=== PATIENT | male | born 1990 | race Caucasian/White ===

== ENCOUNTER → 2019-02-06 | Outpatient (CLI) | payer OTHER ==
--- NOTE | 2019-02-06 11:26 | XR ---
EXAMINATION TYPE: XR knee complete RT DATE OF EXAM: 02/06/2019 CLINICAL HISTORY: Anterior pain after falling injury one week ago. TECHNIQUE: Three views of the right knee are obtained. COMPARISON: None. FINDINGS: The tri-compartment joint spaces appear within normal limits. Fabella is present. Subtle lucency superior aspect of patella appears to correspond to a spur along the anterior superior aspect . Subtle avulsion injury felt less likely but not excluded, correlate clinically for point tenderness at this level. No adjacent soft tissue swelling is noted. IMPRESSION: As above.
== END | disposition home or self-care (01) ==
LOC: RADXRMAIN 10:34
PROVIDERS: ATTEND Emergency Medicine
DX: M25.561 Pain in right knee (principal)

== ENCOUNTER → 2019-03-01 | Outpatient (CLI) | payer OTHER ==
--- NOTE | 2019-03-01 08:50 | MR ---
EXAMINATION TYPE: MR knee RT wo con DATE OF EXAM: 03/01/2019 COMPARISON: Outside right knee x-ray February 16, 2019 HISTORY: Pain in right knee per order. In her pain after stepping injury per patient. TECHNIQUE: Multiplanar, multisequence images of the knee is performed without IV contrast. FINDINGS: MEDIAL MENISCUS: Anterior and posterior horns are intact without tear. LATERAL MENISCUS: Anterior and posterior horns are intact without tear. CRUCIATE LIGAMENTS: The anterior and posterior cruciate ligaments are intact and unremarkable. COLLATERAL LIGAMENTS: The medial collateral ligament and lateral collateral ligament complex are inta ct and unremarkable. EXTENSOR MECHANISM: Visualized quadriceps and patellar tendons are intact. EFFUSION: No significant suprapatellar joint effusion. POPLITEAL CYST: No popliteal/hastings cyst. TRICOMPARTMENT SPACES: Tricompartmental joint spaces are fairly well-preserved. No significant spurri ng. CARTILAGE: Tricompartmental articular cartilage is fairly well maintained. BONE MARROW SIGNAL: No focal abnormal marrow signal is appreciated. OTHER: No additional significant abnormality is appreciated. IMPRESSION: No meniscal or ligamentous tear is seen.
== END | disposition home or self-care (01) ==
LOC: RADMRIMAIN 07:47
PROVIDERS: ATTEND Orthopaedic Surgery
DX: M25.561 Pain in right knee (principal)